=== PATIENT | female | born 1970 | race African-American/Black ===

== ENCOUNTER 2017-05-20 07:54 | Emergency (ER) | payer MEDICAID, OTHER ==
[~2017-05-20] VITALS: Ht 165.1 cm; Wt 61.0 kg
[2017-05-20] MEDS ORDERED: ONDANSETRON 4MG ODT PO ONE ×2 (10:15→11:00)
[2017-05-20] MEDS ORDERED: IBUPROFEN 600MG TABLET PO ONE (10:15)
[2017-05-20 10:38] LABS: BASOPHILS % 0.7 % (0.0-2.0); EOSINOPHILS % 0.5 % (0.0-5.0); HEMATOCRIT. 32.8 % (36.0-48.0); LYMPHOCYTES % 30.8 % (20.0-50.0); MEAN CORPUSCULAR HEMOGLOBIN 32.6 pg (28.0-32.0); MONOCYTES % 9.2 % (2.0-8.0); NEUTROPHILS % 58.8 % (40.0-76.0); PLATELET 212 x1000/uL (130-400); RED BLOOD CELL COUNT 3.38 mill/uL (4.2-5.4); RED CELL DISTRIBUTION WIDTH 12.4 % (11.6-14.6)
[2017-05-20 10:51] LABS: CHLORIDE 106 mEq/L (98-107)
[2017-05-20] MEDS ORDERED: MORPHINE SULFATE 4 MG/ML CPJ (NOT FOR IM USE) IV ONE ×2 (11:00→12:45)
[2017-05-20] MEDS ORDERED: KETOROLAC 15MG/ML VIAL IM ONE (12:45)
[2017-05-20 13:12] LABS: CLARITY URINE CLEAR (CLEAR); COLOR URINE YELLOW (YELLOW); KETONES URINE NEGATIVE (NEGATIVE); LEUKOCYTE ESTERASE URINE NEGATIVE (NEGATIVE); NITRITE URINE NEGATIVE (NEGATIVE); OCCULT BLOOD URINE TRACE (NEGATIVE); PH URINE 8.5 (4.5-8.0); PROTEIN URINE NEGATIVE (NEGATIVE); SPECIFIC GRAVITY URINE 1.019 (1.005-1.030); UROBILINOGEN URINE 0.2 E.U./dL (0.2-1.0)
[2017-05-20 13:35] VITALS: BP 121/60
== END 2017-05-20 15:22 | disposition home or self-care (01) ==
LOC: ER 08:17
DX: M54.30 Sciatica, unspecified side (principal); Z76.5 Malingerer [conscious simulation]; D25.9 Leiomyoma of uterus, unspecified; Z98.1 Arthrodesis status
CPT/HCPCS: 36415; 76856; 80053; 81003; 81025; 83690; 85025; 96372; 96374; 96376; 99285; J1885; J2270; Q0162; Z7610

== ENCOUNTER 2017-10-14 18:11 | Emergency (ER) | payer SELFPAY ==
[~2017-10-14] VITALS: Ht 172.7 cm; Wt 69.0 kg
[2017-10-14] MEDS ORDERED: LIDOCAINE HCL 1% 20ML VIAL (Pyxis) INJ MC ONE (19:00)
[2017-10-14] MEDS ORDERED: HYDROCODONE/ACETAMINOPHEN 5/325MG TABLET PO ONE (19:00)
[2017-10-14] MEDS ORDERED: IBUPROFEN 600MG TABLET PO ONE (19:00)
[2017-10-14] MEDS ORDERED: BACITRACIN ZINC OINT UDPKT TOP ONE (19:00)
[2017-10-14] MEDS ORDERED: LIDOCAINE HCL/PF 1% 10 MG/ML 5ML VIAL ONE (19:11)
[2017-10-14 20:00] LABS: BASOPHILS % 0.3 % (0.0-2.0); EOSINOPHILS % 1.1 % (0.0-5.0); HEMATOCRIT. 33.4 % (36.0-48.0); HEMOGLOBIN. 11.4 g/dL (12.0-16.0); LYMPHOCYTES % 47.1 % (20.0-50.0); MEAN CORPUSCULAR HEMOGLOBIN 32.6 pg (28.0-32.0); MEAN CORPUSCULAR VOLUME 95.8 fL (81.0-99.0); MEAN PLATELET VOLUME 8.9 fl (7.4-10.4); MONOCYTES % 7.3 % (2.0-8.0); NEUTROPHILS % 44.2 % (40.0-76.0); PLATELET 214 x1000/uL (130-400); RED BLOOD CELL COUNT 3.49 mill/uL (4.2-5.4); RED CELL DISTRIBUTION WIDTH 13.2 % (11.6-14.6)
[2017-10-14 20:08] LABS: CHLORIDE 107 mEq/L (98-107)
[2017-10-14 20:34] VITALS: BP 121/81
[2017-10-14 20:35] LABS: HEPATITIS B SURFACE ANTIGEN NEGATIVE
[2017-10-14 21:03] LABS: HEPATITIS B CORE AB IGM NEGATIVE
[2017-10-14 21:04] LABS: HEPATITIS A AB IGM NEGATIVE (NEGATIVE)
== END 2017-10-15 07:43 | disposition home or self-care (01) ==
LOC: ER 10-15 07:38
DX: S61.512A Laceration without foreign body of left wrist, initial encounter (principal); Z98.1 Arthrodesis status; W25.XXXA Contact with sharp glass, initial encounter; Y93.89 Activity, other specified; Y92.010 Kitchen of single-family (private) house as the place of occurrence of the external cause
CPT/HCPCS: 12002; 36415; 73110; 80053; 85025; 99285; J3490; 86705; 86709; 86803; 87340

== ENCOUNTER 2020-11-02 16:33 | Emergency (ER) | payer OTHER, MEDICAID ==
[~2020-11-02] VITALS: Ht 175.3 cm; Wt 68.0 kg
[2020-11-02] MEDS ORDERED: ACETAMINOPHEN 325MG TABLET PO ONE (23:15)
[2020-11-02 23:51] LABS: BASOPHILS % 0.5 % (0.0-2.0); EOSINOPHILS % 2.3 % (0.0-5.0); HEMATOCRIT. 32.9 % (36.0-48.0); HEMOGLOBIN. 11.3 g/dL (12.0-16.0); LYMPHOCYTES % 47.2 % (20.0-50.0); MEAN CORPUSCULAR HEMOGLOBIN 33.4 pg (28.0-32.0); MEAN CORPUSCULAR VOLUME 97.7 fL (81.0-99.0); MONOCYTES % 7.7 % (2.0-8.0); NEUTROPHILS % 42.3 % (40.0-76.0); PLATELET 294 x1000/uL (130-400); RED BLOOD CELL COUNT 3.37 mill/uL (4.2-5.4); RED CELL DISTRIBUTION WIDTH 12.8 % (11.6-14.6)
[2020-11-03 00:06] LABS: CHLORIDE 111 mEq/L (98-107)
[2020-11-03] MEDS ORDERED: ACET-2708 MT (01:30)
[2020-11-03] MEDS ORDERED: NAPR-1176 MT (01:30)
[2020-11-03 02:00] VITALS: BP 108/68
== END 2020-11-03 02:18 | disposition home or self-care (01) ==
LOC: ER 16:59
DX: R07.89 Other chest pain (principal); R55 Syncope and collapse; M54.30 Sciatica, unspecified side; Z98.1 Arthrodesis status; Z90.710 Acquired absence of both cervix and uterus; Z88.3 Allergy status to other anti-infective agents; V43.52XA Car driver injured in collision with other type car in traffic accident, initial encounter; Y93.89 Activity, other specified; Y92.488 Other paved roadways as the place of occurrence of the external cause
CPT/HCPCS: 36415; 71045; 80053; 81025; 84484; 85025; 93005; 99285

== ENCOUNTER 2024-04-16 16:46 | Emergency (ER) | payer OTHER ==
[~2024-04-16] VITALS: Ht 175.3 cm; Wt 78.0 kg
[~2024-04-16 16:46] MED LIST: ACET-2708 MT; NAPR-1176 MT
[2024-04-16 16:52] VITALS: BP 149/87; TEMP 37; O2SAT 99
[2024-04-16 17:07] VITALS: PULSE 86; RESP 18; O2SAT 99
[2024-04-16] MEDS: IBUPROFEN 600MG TABLET PO NR (18:55)
[2024-04-16] MEDS: HYDROCODONE/ACETAMINOPHEN 5/325MG TABLET PO ONE (18:55)
[2024-04-16] MEDS ORDERED: ONDANSETRON 4MG ODT PO ONE (19:00)
[2024-04-16] MEDS ORDERED: MORPHINE SULFATE 4 MG/ML INJ (FOR IV/IM USE) IM ONE (19:00)
== END 2024-04-16 19:00 | disposition home or self-care (01) ==
LOC: ER 16:46
DX: S62.112A Displaced fracture of triquetrum [cuneiform] bone, left wrist, initial encounter for closed fracture (principal); Z79.1 Long term (current) use of non-steroidal anti-inflammatories (NSAID); Z88.1 Allergy status to other antibiotic agents; Z90.710 Acquired absence of both cervix and uterus; W01.0XXA Fall on same level from slipping, tripping and stumbling without subsequent striking against object, initial encounter; Y93.89 Activity, other specified; Y92.89 Other specified places as the place of occurrence of the external cause; Y99.8 Other external cause status
CPT/HCPCS: 29125; 73110; 99283